=== PATIENT | female | born 1960 | race Caucasian/White ===

== ENCOUNTER 2021-02-02 11:48 | Emergency (ER) | payer SELFPAY ==
[2021-02-02] MEDS ORDERED: HYDROcodone/Acetaminophen 10/325 mg Tablet ONE (12:06)
[2021-02-02] MEDS ORDERED: Ibuprofen 800 MG TAB ONE (12:06)
[2021-02-02] MEDS ORDERED: Boostrix 0.5 ML (Tdap) VIAL ONE (12:13)
== END 2021-02-02 12:50 | disposition home or self-care (01) ==
LOC: BURERS 11:48
DX: S81.812A Laceration without foreign body, left lower leg, initial encounter (principal); W22.8XXA Striking against or struck by other objects, initial encounter
CPT/HCPCS: 90471; 90715